=== PATIENT | female | born 1965 | race Two or more races ===

== ENCOUNTER 2019-10-04 06:05 | Inpatient (IN) | payer MEDICAID, OTHER ==
[~2019-10-04] VITALS: Ht 167.6 cm; Wt 87.1 kg
--- NOTE | 2019-10-04 06:10 | NUR ---
PT BIBRA 40 FROM HOME FOR C/O DIZZINESS, NAUSEA AND VOMITING X 1 HOUR. PT AAOX4, RESPIRATIONS EVEN AND UNLABORED ON RA W/ NAD NOTED. PT CONNECTED TO THE MONITOR AND POX. AWAITING FOR MD STAPLES
[2019-10-04] MEDS ORDERED: diphenhydrAMINE HCL 50 MG/ML VIAL ONE ×2 (06:16→08:01)
[2019-10-04] MEDS ORDERED: ONDANSETRON HCL/PF 4 MG/2 ML VIAL ONE (06:17)
--- NOTE | 2019-10-04 06:27 | NUR ---
PT HYPERTENSIVE, DR. NEAL AWARE
[2019-10-04] MEDS ORDERED: diphenhydrAMINE HCL 50 MG/ML VIAL IV ONE ×2 (06:30→08:00)
[2019-10-04] MEDS ORDERED: ONDANSETRON HCL/PF 4 MG/2 ML VIAL IVP ONE (06:30)
[2019-10-04] MEDS ORDERED: IV NS 0.9% 500 ML BAG IV ONE (06:30)
--- NOTE | 2019-10-04 06:37 | NUR ---
XRAY AT BEDSIDE.
[2019-10-04 06:40] LABS: BASOPHILS % (AUTO) 0.8 % (0.0-2.0); EOSINOPHILS % (AUTO) 3.9 % (0.0-6.0); HEMATOCRIT 44 % (33-45); HEMOGLOBIN 14.4 g/dL (11.5-14.8); LYMPHOCYTES # (AUTO) 2.6 /CMM (0.8-4.8); LYMPHOCYTES % (AUTO) 44.5 % (20.0-44.0); MEAN CORPUSCULAR HGB CONC 33 g/dl (31.0-36.0); MEAN CORPUSCULAR VOLUME 84 fL (82-100); MONOCYTES # (AUTO) 0.3 /CMM (0.1-1.30); MONOCYTES % (AUTO) 4.4 % (2.0-12.0); NEUTROPHILS # (AUTO) 2.8 /CMM (1.8-8.9); NEUTROPHILS % (AUTO) 46.4 % (43.0-81.0); PLATELET COUNT (AUTO) 277 /CMM (150-450); RED BLOOD CELL COUNT(AUTO) 5.16 MIL/uL (4.0-5.2)
[2019-10-04 06:47] LABS: CALCIUM, SERUM 9.3 mg/dL (8.5-10.1); CARBON DIOXIDE 21 mmol/L (21-32); CHLORIDE 104 mmol/L (98-107); CREATININE 1.1 mg/dL (0.6-1.3); GLUCOSE 157 mg/dL (74-106); POTASSIUM 3.2 mmol/L (3.5-5.1); SODIUM SERUM 140 mmol/L (136-145); UREA NITROGEN, BLOOD 15 mg/dL (7-18)
--- NOTE | 2019-10-04 07:20 | NUR ---
ASSESSED PT ON BED AWAKE AND AAOX4. NOT IN RESPIRATORY DISTRESS, KEPT RESTED AND COMFORTABLE, WILL CONTINUE TO MONITOR.
[2019-10-04] MEDS ORDERED: LISI-603 PO (10:16)
[2019-10-04] MEDS ORDERED: CHLO25TA2 PO (10:16)
[2019-10-04] MEDS ORDERED: AMLO10TA7 PO (10:16)
[2019-10-04] MEDS ORDERED: ALBU8.5H8 IH (10:16)
[2019-10-04] MEDS ORDERED: ATOR10TA PO (10:16)
--- NOTE | 2019-10-04 10:45 | NUR ---
PER PT SHE IS LESS DIZZY NOW AND ABLE TO WALK WITH ASSISTANCE.
--- NOTE | 2019-10-04 11:03 | NUR ---
nursing supervisor facepiece line called to assign bed 306-2
--- NOTE | 2019-10-04 11:25 | NUR ---
REPORT GIVEN TO ILIA MADDEN.
[2019-10-04] MEDS ORDERED: hydrALAZINE HCL 50 MG TABLET PO STA (13:10)
--- NOTE | 2019-10-04 13:14 | NUR ---
given one time hydralazine med.
[2019-10-04] MEDS ORDERED: IV NS 0.9% 1,000 ML IV PRN (13:54)
[2019-10-04] MEDS ORDERED: Z GUARD REMEDY 2 OZ OINT TP PRN (14:00)
[2019-10-04] MEDS ORDERED: DIAZEPAM 10 MG TABLET PO PRN (14:00)
[2019-10-04] MEDS ORDERED: ALBUTEROL FS 2.5 MG/0.5 ML VIAL.NEB IH PRN (14:00)
[2019-10-04] MEDS ORDERED: ONDANSETRON HCL/PF 4 MG/2 ML VIAL IVP PRN (14:00)
[2019-10-04] MEDS ORDERED: ACETAMINOPHEN 325 MG TABLET PO PRN (14:00)
[2019-10-04] MEDS ORDERED: AMLODIPINE BESYLATE 10 MG TABLET PO SCH (14:51)
[2019-10-04] MEDS ORDERED: LISINOPRIL (20MG) 20 MG TABLET PO SCH (14:52)
[2019-10-04] MEDS ORDERED: MECLIZINE HCL 25 MG TABLET ONE (15:20)
[2019-10-04] MEDS ORDERED: AMLODIPINE BESYLATE 10 MG TABLET ONE ×2 (15:21→15:25)
[2019-10-04] MEDS ORDERED: LISINOPRIL (20MG) 20 MG TABLET ONE (15:21)
[2019-10-04] MEDS: MECLIZINE HCL 25 MG TABLET PO SCH ×2 (15:23→21:30)
[2019-10-04] MEDS: LISINOPRIL (20MG) 20 MG TABLET PO SCH (15:23)
[2019-10-04] MEDS: AMLODIPINE BESYLATE 10 MG TABLET PO SCH (15:30)
--- NOTE | 2019-10-04 16:56 | NUR ---
duplicate orders for meds norvasc,antivert and prinivil not given.
--- NOTE | 2019-10-04 18:00 | NUR ---
med x 1 for nausea.
--- NOTE | 2019-10-04 18:30 | NUR ---
iv not begun due to high bp.to endorse this to diogo. shift rn.
--- NOTE | 2019-10-04 19:45 | NUR ---
LEAD CAREGIVER OPENING NOTES RECEIVED PATIENT RESTING IN BED COMFORTABLY; A/OX4; BREATHING EVEN AND UNLABORED; NO SOB NOTED; PATIENT TOLERATING ROOM AIR WELL; TELE MONITOR READS SINUS RHYTHM 70S BPM WITH PVCS; PATIENT DENIES PAIN; L AC # 20 INTACT AND PATENT; FLUSHING WELL, NO S/S OF REDNESS OR INFILTRATION NOTED; SAFETY PRECAUTIONS IMPLEMENTED; BED LOCKED IN LOW POSITION; SIDE RAILS X2; CALL LIGHT WITHIN REACH; WILL CONT PLAN OF CARE AND CONT TO MONITOR
--- NOTE | 2019-10-04 19:55 | NUR ---
adm. to 3 west,states a little chest pressure. hooked up to tele and rhythm sinus with pvc's.rate of 72.made familiar with rm.and care plan.hep lock intact.cynthiaing joseph miller regarding high bp.instructed to call nan ambulating. Addendum: 10/04/19 at 2026 by LAQUITA HIGHTOWER RN above note from edith.
[2019-10-04 20:00] VITALS: BP 139/99
[2019-10-04] MEDS ORDERED: ATORVASTATIN 10 MG TABLET PO SCH (22:00)
--- NOTE | 2019-10-04 23:03 | NUR ---
VIDEO CONFERENCE SPECIALIST NOTES PATIENT REQUESTED TYLENOL FOR MILD HEADACHE; PATIENT REFUSING IVF; PATIENT EDUCATED; PATIENT STILL REFUSED AND REPORTED SHE WILL DRINK A LOT OF WATER THROUGHOUT SHIFT; WILL CONT TO MONITOR
[2019-10-05] VITALS: BP 126/79
[2019-10-05 04:00] VITALS: BP 113/79
[2019-10-05 04:39] VITALS: BP 113/79
[2019-10-05] MEDS: MECLIZINE HCL 25 MG TABLET PO SCH ×2 (04:46→13:53)
--- NOTE | 2019-10-05 04:53 | NUR ---
OFFICE MACHINES WIRER NOTES PATIENT STILL REFUSING IV FLUIDS; PATIENT STATES SHE WILL DRINK A LOT OF FLUIDS INSTEAD; PATIENT EDUCATED; RISKS AND BENEFITS DISCUSSED AND RE-REVIEWED; PATIENT STILL DOES NOT WANT IVF; WILL CONT TO MONITOR
[2019-10-05 06:30] LABS: BASOPHILS # (AUTO) 0.1 /CMM (0.0-0.2); BASOPHILS % (AUTO) 0.7 % (0.0-2.0); EOSINOPHILS % (AUTO) 1.2 % (0.0-6.0); HEMATOCRIT 44 % (33-45); HEMOGLOBIN 14.6 g/dL (11.5-14.8); LYMPHOCYTES # (AUTO) 3.2 /CMM (0.8-4.8); LYMPHOCYTES % (AUTO) 35.4 % (20.0-44.0); MEAN CORPUSCULAR HGB CONC 33 g/dl (31.0-36.0); MEAN CORPUSCULAR VOLUME 85 fL (82-100); MONOCYTES # (AUTO) 0.4 /CMM (0.1-1.30); MONOCYTES % (AUTO) 4.7 % (2.0-12.0); NEUTROPHILS # (AUTO) 5.2 /CMM (1.8-8.9); PLATELET COUNT (AUTO) 315 /CMM (150-450); RED BLOOD CELL COUNT(AUTO) 5.16 MIL/uL (4.0-5.2); WHITE BLOOD COUNT (AUTO) 8.9 K/uL (4.3-11.0)
--- NOTE | 2019-10-05 06:30 | NUR ---
SHUTTLECOCK FEATHER TRIMMER CLOSING NOTES PATIENT RESTING IN BED COMFORTABLY; BREATHING EVEN AND UNLABORED; NO SOB NOTED; PATIENT TOLERATING ROOM AIR WELL; ABLE TO MAKE NEEDS KNOWN; TELE MONITOR NSR 71BPM; L WRIST # 20 INTACT AND PATENT; FLUSHING WELL, NO S/S OF REDNESS OR INFILTRATION; PATIENT STILL REFUSING IVF; ALL NEEDS RENDERED; SAFETY PRECAUTIONS IMPLEMENTED; BED LOCKED IN LOW POSITION; SIDE RAILS X2; CALL LIGHT WITHIN REACH; WILL ENDORSE CHANO TO ONCOMING SHIFT
[2019-10-05 06:44] LABS: ALBUMIN 3.6 g/dL (3.4-5.0); BILIRUBIN,TOTAL 0.5 mg/dL (0.2-1.0); CALCIUM, SERUM 9.4 mg/dL (8.5-10.1); CREATININE 1.1 mg/dL (0.6-1.3); MAGNESIUM 2.4 mg/dL (1.8-2.4); PHOSPHORUS 4.4 mg/dL (2.5-4.9); POTASSIUM 3.1 mmol/L (3.5-5.1); TOTAL PROTEIN, SERUM 7.5 g/dL (6.4-8.2)
--- NOTE | 2019-10-05 07:20 | NUR ---
ms rn received on bed, awake,alert,oriented x4,not in any form of distress, respirations even and unlabored,no sob noted, lungs are clear,abdomen soft,positive bowel sounds, denies pain at this time,all needs attended.
[2019-10-05 07:43] LABS: THYROID STIMULATING HORMONE 0.992 uIU/mL (0.358-3.74)
[2019-10-05 08:00] VITALS: BP 143/93
[2019-10-05] MEDS: AMLODIPINE BESYLATE 10 MG TABLET PO SCH (08:28)
[2019-10-05] MEDS: LISINOPRIL (20MG) 20 MG TABLET PO SCH (08:28)
--- NOTE | 2019-10-05 09:00 | NUR ---
ms talbert breakfast served,due meds given,tolerated, all needs attended.
--- NOTE | 2019-10-05 09:00 | NUR ---
ms rn was seen by dr. calderon.
[2019-10-05] MEDS: POTASSIUM CHLORIDE 20 MEQ TAB.PRT.SR PO SCH ×2 (11:08→13:53)
--- NOTE | 2019-10-05 11:30 | NUR ---
ms rn went down to mri.
[2019-10-05] MEDS ORDERED: ASPIRIN EC 325 MG TABLET.DR PO SCH (12:00)
--- NOTE | 2019-10-05 12:30 | NUR ---
ms r came back from mri, denies pain a this time.
[2019-10-05] MEDS ORDERED: ASPI-869 PO (15:57)
[2019-10-05] MEDS ORDERED: MECL-159 PO (15:57)
[2019-10-05 16:00] VITALS: BP 141/92
--- NOTE | 2019-10-05 16:00 | NUR ---
ms rn sent mri result to dr. husain and face time patient , will d/c patient per dr. alcazar.
[2019-10-05] MEDS ORDERED: GADOTERIDOL 279.3 MG/ML VIAL IV ONE (16:52)
--- NOTE | 2019-10-05 17:59 | NUR ---
ms cad intern instructions given and understood, rx given to patient, went home ,picker and packer by ,all needs attended,no distress noted.
== END 2019-10-05 18:00 | disposition home or self-care (01) | DRG 111 ==
LOC: ER 06:07 → TELE 11:07 → MED 10-05 10:06
PROVIDERS: ADMIT Nurse Practitioner Acute Care; ATTEND Internal Medicine
DX: H81.10 Benign paroxysmal vertigo, unspecified ear (principal); E66.9 Obesity, unspecified; E87.6 Hypokalemia; I10 Essential (primary) hypertension; J45.909 Unspecified asthma, uncomplicated; G47.33 Obstructive sleep apnea (adult) (pediatric); Z68.31 Body mass index [BMI] 31.0-31.9, adult; J98.11 Atelectasis
CPT/HCPCS: 36415; 70450-TC; 70553-TC; 71045-TC; 80048-TC; 80053-TC; 80061-TC; 83540-TC; 83735-TC; 84100-TC; 84443-TC; 84484-TC; 85025-TC; 87081-TC; 93307-TC; 93880-TC; 97116-TC; 97530-TC; A9579; G0378; J1200; J2405; J7030; J7040; J8597